=== PATIENT | male | born 1940 | race Caucasian/White ===

== ENCOUNTER 2016-11-28 12:39 | Emergency (ER) | payer OTHER, BC ==
[~2016-11-28] VITALS: Ht 175.3 cm; Wt 97.5 kg
--- NOTE | ~2016-11-28 | EKG ---
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1940 Requested By: Adrián Mckay Order Number: [id number] MD: Juvencio Calhoun Measurements Intervals [place] Rate: 68 P: 34 NM: 218 QRS: -31 QRSD: 94 T: 49 QT: 412 QTc: 439 Interpretive Statements Sinus rhythm Borderline prolonged NM interval Left axis deviation Poor R-wave progression No previous ECG available for comparison Electronically Signed On 11-29-2016 14:19:36 MOUNTER SAXOPHONES by Juvencio Calhoun [email or web address] <ELECTRONICALLY SIGNED> By: Juvencio Calhoun MD, [facility] 11/29/16 1419 1320 1320 Juvencio Calhoun MD, FACC /EPI
[2016-11-28] MEDS ORDERED: OMEPRAZOLE20 M2 PO (13:05)
[2016-11-28] MEDS ORDERED: TUMS PO (13:06)
[2016-11-28] MEDS ORDERED: TRAVATAN Z2.5 ML OPHTHALMIC (13:09)
[2016-11-28] MEDS ORDERED: COSOPT EYE DROPS5 ML OPHTHALMIC (13:10)
[2016-11-28] MEDS ORDERED: COLESTIPOL HCL1 G1 PO (13:11)
[2016-11-28] MEDS ORDERED: ASPIR 8181 MG PER TUBE (13:12)
[2016-11-28] MEDS ORDERED: LIPITOR10 MG PO (13:13)
[2016-11-28] MEDS ORDERED: FINASTERIDE1 MG PO (13:13)
[2016-11-28 13:54] LABS: ABSOLUTE NEUTROPHILS 6.3 thou/uL (1.4-8.2); BASOPHILS 0.9 % (0.0-2.0); EOSINOPHILS 2.2 % (0.0-3.0); HEMATOCRIT 40.4 % (42.0-52.0); LYMPHOCYTES 16.7 % (24.0-44.0); MCH 31.6 pg (26.0-34.0); MCHC 34.7 % (28.0-37.0); MCV 91.2 fL (80.0-100.0); MONOCYTES 7.4 % (1.0-8.0); PLATELET COUNT 197 thou/uL (150-400); POLYS 72.8 % (36.0-66.0); RBC 4.43 mil/uL (4.50-6.00); RDW 14.5 % (10.5-14.5); WBC 8.7 thou/uL (4.0-11.0)
[2016-11-28 13:59] LABS: CREATININE 1.2 mg/dL (0.6-1.3); POTASSIUM 3.7 mmol/L (3.5-5.1)
[2016-11-28 14:04] LABS: ALBUMIN 3.6 g/dL (3.4-5.0); TOTAL BILIRUBIN 0.9 mg/dL (<0.1-1.0); TOTAL PROTEIN 6.9 g/dL (6.4-8.2)
[2016-11-28 14:06] LABS: MAGNESIUM 2.2 mg/dL (1.8-2.4); TROPONIN-I < 0.04 ng/mL (<0.04-0.07)
[2016-11-28 14:13] LABS: MANUAL DIFF NO
[2016-11-28 15:27] LABS: URINE BILIRUBIN NEGATIVE (Negative); URINE BLOOD NEGATIVE (Negative); URINE COLOR YELLOW; URINE GLUCOSE-RANDOM* NEGATIVE (Negative); URINE KETONES NEGATIVE (Negative); URINE LEUKOCYTES-REFLEX NEGATIVE (Negative); URINE PROTEIN (DIPSTICK) NEGATIVE (Negative); URINE SPECIFIC GRAVITY >= 1.030 (1.003-1.035); URINE UROBILINOGEN 0.2 E.U./dl (0.2-1.0)
[2016-11-28 16:09] VITALS: BP 104/68
== END 2016-11-28 16:12 | disposition home or self-care (01) ==
LOC: ER 12:39
PROVIDERS: Emergency Medicine
DX: R53.1 Weakness (principal); E78.5 Hyperlipidemia, unspecified; E03.9 Hypothyroidism, unspecified; K21.9 Gastro-esophageal reflux disease without esophagitis; Z88.0 Allergy status to penicillin; F10.99 Alcohol use, unspecified with unspecified alcohol-induced disorder

== ENCOUNTER 2018-06-15 20:26 | Emergency (ER) | payer OTHER, BC ==
[~2018-06-15] VITALS: Ht 175.3 cm; Wt 93.0 kg
--- NOTE | ~2018-06-15 | EKG ---
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 : 1940 Requested By: Nikolai Batres Order Number: [id number] MD: Juvencio Calhoun Measurements Intervals [place] Rate: 70 P: 41 MS: 227 QRS: -22 QRSD: 101 T: 56 QT: 418 QTc: 452 Interpretive Statements Sinus rhythm Prolonged MS interval Borderline left axis deviation Compared to ECG 11/28/2016 13:20:53 No significant change was found Electronically Signed On 06-16-2018 8:17:01 CDT by Juvencio Calhoun [email or web address] <ELECTRONICALLY SIGNED> By: Juvencio Calhoun MD, [facility] 06/16/18 08 23 23 Juvencio Calhoun MD, [facility] /EPI
[~2018-06-15 20:26] MED LIST: ASPIR 8181 MG PER TUBE; COLESTIPOL HCL1 G1 PO; COSOPT EYE DROPS5 ML OPHTHALMIC; FINASTERIDE1 MG PO; LIPITOR10 MG PO; OMEPRAZOLE20 M2 PO; TRAVATAN Z2.5 ML OPHTHALMIC; TUMS PO
[2018-06-15] MEDS ORDERED: CENTRUM SILVER1 EAC2 PO (20:37)
[2018-06-15] MEDS ORDERED: SYNTHROID100 MC1 PO (20:37)
[2018-06-15] MEDS ORDERED: CALCIUM 500 +1 EAC5 PO (20:37)
[2018-06-15 22:01] LABS: ABSOLUTE NEUTROPHILS 4.6 thou/uL (1.4-8.2); BASOPHILS 1.4 % (0.0-2.0); HEMATOCRIT 33.6 % (42.0-52.0); HEMOGLOBIN 11.4 gm/dL (14.0-18.0); LYMPHOCYTES 20.5 % (24.0-44.0); MCH 32.4 pg (26.0-34.0); MCV 95.4 fL (80.0-100.0); MONOCYTES 10.2 % (1.0-8.0); PLATELET COUNT 222 thou/uL (150-400); POLYS 62.9 % (36.0-66.0); RBC 3.53 mil/uL (4.50-6.00); RDW 15.2 % (10.5-14.5); WBC 7.4 thou/uL (4.0-11.0)
[2018-06-15 22:08] LABS: ANION GAP 6 mmol/L (7-16); BUN 14 mg/dL (7-18); CALCIUM 8.5 mg/dL (8.5-10.1); CHLORIDE 108 mmol/L (98-107); CO2 27 mmol/L (21-32); CREATININE 1.1 mg/dL (0.7-1.3); GLUCOSE 93 mg/dL (74-106); POTASSIUM 3.9 mmol/L (3.5-5.1); SODIUM 141 mmol/L (136-145)
[2018-06-15 22:16] LABS: TROPONIN-I <0.06 ng/mL (<0.06)
[2018-06-15 22:56] VITALS: BP 150/88
== END 2018-06-15 22:56 | disposition home or self-care (01) ==
LOC: ER 20:26
PROVIDERS: Physician Assistant
DX: R60.0 Localized edema (principal); E78.00 Pure hypercholesterolemia, unspecified; E03.9 Hypothyroidism, unspecified; K21.9 Gastro-esophageal reflux disease without esophagitis; Z88.0 Allergy status to penicillin

== ENCOUNTER 2019-07-20 15:58 | Inpatient (IN) | payer OTHER, BC ==
[~2019-07-20] VITALS: Ht 175.3 cm; Wt 93.0 kg
[~2019-07-20 15:58] MED LIST changes: +CALCIUM 500 +1 EAC5 PO; +CENTRUM SILVER1 EAC2 PO; +SYNTHROID100 MC1 PO
[2019-07-20 15:59] VITALS: BP 98/79
--- NOTE | 2019-07-20 16:23 | EKG ---
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1940 Requested By: Adrián Mckay Order Number: [id number] MD: Juvencio Calhoun Measurements Intervals [place] Rate: 135 P: [place]: QRS: -17 QRSD: 87 T: 65 QT: 319 QTc: 479 Interpretive Statements Atrial fibrillation Borderline left axis deviation ST depression, probably rate related Borderline prolonged QT interval Compared to ECG 06/15/2018 21:24:57 Atrial fibrillation has replaced sinus rhythm Electronically Signed On 07-20-2019 16:23:24 CDT by Juvencio Calhoun [email or web address] <ELECTRONICALLY SIGNED> By: Juvencio Calhoun MD, [facility] 07/20/19 1623 D: [id number] Juvencio Calhoun MD, FACC /EPI
[2019-07-20 17:20] LABS: ABSOLUTE NEUTROPHILS 5.5 thou/uL (1.4-8.2); BASOPHILS 1.2 % (0.0-2.0); EOSINOPHILS 3.2 % (0.0-3.0); HEMATOCRIT 33.4 % (42.0-52.0); HEMOGLOBIN 11.2 gm/dL (14.0-18.0); LYMPHOCYTES 14.4 % (24.0-44.0); MCH 29.4 pg (26.0-34.0); MCHC 33.6 g/dL (28.0-37.0); MCV 87.5 fL (80.0-100.0); MONOCYTES 8.9 % (1.0-8.0); PLATELET COUNT 197 thou/uL (150-400); POLYS 72.3 % (36.0-66.0); RBC 3.81 mil/uL (4.50-6.00); RDW 18.6 % (10.5-14.5); WBC 7.6 thou/uL (4.0-11.0)
[2019-07-20 17:29] LABS: ANION GAP 8 mmol/L (7-16); BUN 20 mg/dL (7-18); CALCIUM 9.1 mg/dL (8.5-10.1); CHLORIDE 106 mmol/L (98-107); CO2 26 mmol/L (21-32); CREATININE 1.1 mg/dL (0.7-1.3); GLUCOSE 108 mg/dL (74-106); POTASSIUM 3.6 mmol/L (3.5-5.1); SODIUM 140 mmol/L (136-145)
[2019-07-20 17:39] LABS: ALBUMIN 3.2 g/dL (3.4-5.0); MAGNESIUM 1.9 mg/dL (1.8-2.4); SGOT 19 U/L (15-37); SGPT 22 U/L (30-65); TOTAL BILIRUBIN 0.6 mg/dL (<0.1-1.0); TOTAL PROTEIN 6.2 g/dL (6.4-8.2); TROPONIN-I <0.06 ng/mL (<0.06)
[2019-07-20 18:00] LABS: URINE BILIRUBIN NEGATIVE (Negative); URINE BLOOD NEGATIVE (Negative); URINE CLARITY CLEAR; URINE COLOR YELLOW; URINE GLUCOSE-RANDOM* NEGATIVE (Negative); URINE KETONES NEGATIVE (Negative); URINE LEUKOCYTES-REFLEX NEGATIVE (Negative); URINE NITRITE-REFLEX NEGATIVE (Negative); URINE PROTEIN (DIPSTICK) NEGATIVE (Negative); URINE UROBILINOGEN 0.2 E.U./dl (0.2-1.0)
[2019-07-20 18:01] VITALS: BP 114/74
[2019-07-20 19:31] VITALS: BP 107/71
[2019-07-20 20:00] VITALS: BP 126/76
[2019-07-20] MEDS ORDERED: IRON325 PO (20:56)
[2019-07-20] MEDS ORDERED: PROCTOZONE-HC30 GM RECTAL (20:58)
[2019-07-21 00:15] VITALS: BP 108/53
[2019-07-21 04:25] VITALS: BP 117/65
--- NOTE | 2019-07-21 05:29 | NUR ---
PT ARRIVED UNIT AT ABOUT 1940, PT A/OX4, VITALS SIGNS STABLE, ASSESSMENT CHARTED. ADMISSION AND MED REC COMPLETED. NO COMPLAINTS OF PAIN. PT RESTE WELL THROUGH THE NIGHT. SINUS BRADYCARDIA ON THE MONITOR THROUGH OUT THE NIGHT, HR IN THE 50'S. OFF CARDIZEM DRIP. PROGRESSING TOWARD PLAN OF CARE. WILL CONTINUE TO MONITOR.
[2019-07-21 05:31] LABS: ANION GAP 9 mmol/L (7-16); BUN 19 mg/dL (7-18); CALCIUM 8.6 mg/dL (8.5-10.1); CHLORIDE 107 mmol/L (98-107); CHOLESTEROL 160 mg/dL (<200); CO2 26 mmol/L (21-32); GLUCOSE 99 mg/dL (74-106); HDL CHOLESTEROL 30 mg/dL (>40); LDL CHOLESTEROL 81 mg/dL (<100); POTASSIUM 3.3 mmol/L (3.5-5.1); SODIUM 142 mmol/L (136-145); TC:HDL 5.3 Ratio (Not establshd); TRIGLYCERIDE 248 mg/dL (<150); VLDL 50 mg/dL (<40)
[2019-07-21 05:56] LABS: ABSOLUTE NEUTROPHILS 5.4 thou/uL (1.4-8.2); BASOPHILS 0.7 % (0.0-2.0); HEMATOCRIT 32.7 % (42.0-52.0); LYMPHOCYTES 17.8 % (24.0-44.0); MCH 29.7 pg (26.0-34.0); MCHC 33.6 g/dL (28.0-37.0); MCV 88.5 fL (80.0-100.0); MONOCYTES 9.8 % (1.0-8.0); PLATELET COUNT 202 thou/uL (150-400); POLYS 68.7 % (36.0-66.0); RDW 19.3 % (10.5-14.5); WBC 7.8 thou/uL (4.0-11.0)
[2019-07-21 05:59] LABS: SERUM ASSESSMENT Clear
[2019-07-21 08:07] VITALS: BP 127/60
--- NOTE | 2019-07-21 08:34 | NUR ---
ASSUMED CARE OF PT FOR DAY SHIFT. A&0X4, AMB INDEPENDENTLY, SISTER IN LAW AT BEDSIDE, STATES SHE NOTED WHAT APPEARS LIKE SLEEP APNEA. WILL SEND COMM TO HOSPITALIST ON BOARD FOR TODAY, AGREED TO SOME TYLENOL FOR CHRONIC BACK PAIN AND ONE OF HIS TOES HURTS, WONDERS ALOUD IF HE KICKED THE END OF THE BED DURING SLEEP. ENCOURAGED BOTH TO USE CALL LIGHT FOR ANY NEEDS
--- NOTE | 2019-07-21 10:29 | 2DMMODE ---
[facility] [address] [place] [address] 2 D/M-MODE ECHOCARDIOGRAM Name: SABRA PEREIRA Room #: 214-P ADM IN M.R.#: [id number] Admission: 07/20/19 Attend Phys: Rachel Patrick Discharge: Date of : 44 Date of Service: 07/21/19 1029 Report #: [id number] THIS REPORT FOR: //name// APPROVED REPORT Study performed: 07/21/2019 09:49:32 EXAM: Comprehensive 2D, Doppler, and color-flow Echocardiogram Patient Location: Bedside Room #: 214 Status: routine BSA: 2.09 HR: 64 bpm BP: 117/65 mmHg Rhythm: NSR Other Information Study Quality: Adequate Indications New onset of Afib with RVR. 2D Dimensions RVDd: 31.30 mm IVSd: 12.48 (7-11mm) LVOT Diam: 20.76 (18-24mm) LVDd: 44.57 mm PWd: 11.49 (7-11mm) Ascending Ao: 35.09 (22-36mm) LVDs: 31.08 (25-40mm) Aortic Root: 33.26 mm Volumes Left Atrial Volume (Systole) Single Plane 4CH: 33.44 mL Single Plane 2CH: 39.47 mL LA ESV Index: 18.00 mL/m2 Aortic Valve AoV Peak Ady.: 1.57 m/s AO Peak Gr.: 9.84 mmHg LVOT Max P.64 mmHg LVOT Max V: 1.29 m/s CAITIE Vmax: 2.78 cm2 Mitral Valve E/A Ratio: 0.8 MV Decel. Time: 229.62 ms MV E Max Ady.: 0.63 m/s [facility] [address] [place] [address] 2 D/M-MODE ECHOCARDIOGRAM Name: SABRA PEREIRA Room #: 214-[facility] IN ..#: [id number] Admission: 07/20/19 Attend Phys: Rachel Patrick Discharge: Date of : 44 Date of Service: 07/21/19 1029 Report #: [id number] MV A Ady.: 0.82 m/s MV PHT: 66.59 ms IVRT: 133.79 ms Pulmonary Valve PV Peak Ady.: 0.87 m/s PV Peak Gr.: 3.03 mmHg Pulmonary Vein P Vein S: 0.55 m/s P Vein D: 0.41 m/s P Vein S/D Ratio: 1.34 Tricuspid Valve TR Peak Ady.: 1.83 m/s RAP Estimate: 5.00 mmHg TR Peak Gr.: 13.36 mmHg PA Pressure: 18.00 mmHg Left Ventricle The left ventricle is normal size. There is normal LV segmental wall motion. Mild basal septal hypertrophy is present. Left ventricular systolic function is normal. LVEF is 60-65%. Mild diastolic dysfunction is present (impaired relaxation pattern). Right Ventricle The right ventricle is normal size. The right ventricular systolic function is normal. Atria The left atrium size is normal. The right atrium size is normal. Aortic Valve The aortic valve is normal in structure. No aortic regurgitation is present. There is no aortic valvular stenosis. Mitral Valve The mitral valve is normal in structure. There is no mitral valve regurgitation noted. No evidence of mitral valve stenosis. Tricuspid Valve The tricuspid valve is normal in structure. Trace tricuspid regurgitation. Estimated PAP is 20mmHg. Pulmonic Valve Pulmonic valve is not well visualized. Trace pulmonic regurgitation. [facility] [address] [place] [address] 2 D/M-MODE ECHOCARDIOGRAM Name: PEREIRASABRARICK Room #: 214-P [facility] IN M.R.#: [id number] Admission: 07/20/19 Attend Phys: Rachel Patrick Discharge: Date of : 44 Date of Service: 07/21/19 1029 Report #: [id number] Great Vessels The aortic root is normal in size. The ascending aorta is normal in size. IVC is normal in size and collapses >50% with inspiration. Pericardium There is no pericardial effusion. <Conclusion> The left ventricle is normal size. Left ventricular systolic function is normal. Mild diastolic dysfunction is present (impaired relaxation pattern). The right ventricle is normal size. The left atrium size is normal. The aortic valve is normal in structure. The mitral valve is normal in structure. Trace tricuspid regurgitation. Estimated PAP is 20mmHg. <ELECTRONICALLY SIGNED> By: Aston Montez MD 07/21/19 1029 1029 1029 Aston Montez MD /INF
[2019-07-21 12:10] VITALS: BP 106/61
[2019-07-21 13:50] VITALS: BP 96/66
[2019-07-21 21:48] VITALS: BP 124/73
--- NOTE | 2019-07-22 03:32 | NUR ---
ASSUMED PT CARE AT 1900. VITAL SIGNS STABLE, ASSESSMENT CHARTED. NO COMPLAINTS OF PAIN. NSR ON THE MONITOR THROUGHOUT SHIFT. PT RESTED WELL THROUGH THE NIGHT. PROGRESSING TOWARDS PLAN OF CARE. POSSIBLE DISCHARGE IN AM. WILLL CONTINUE TO CLOSELY MONITOR.
[2019-07-22 08:01] VITALS: BP 143/74
[2019-07-22] MEDS ORDERED: ELIQUIS5 MG PO (08:40)
[2019-07-22] MEDS ORDERED: METOPROLOL SUCC25 M1 PO (08:40)
[2019-07-22 11:00] VITALS: BP 143/74
--- NOTE | 2019-07-22 11:40 | NUR ---
ASSUMED CARE OF PT AT BEGINNING OF DAY SHIFT, HE IS A&0X4, DEFERS A LOT OF QUESTIONS TO SISTER IN LAW AND AT DIRECT GAZE TO HIM, HE WILL ANSWER. SIS IN LAW, LUISA, SHOWS TERRIFIC SUPPORT. AMB STEADY. USES CALL LIGHT FREQ FOR NEEDS. CALLED IN RX FOR THEM PRIOR TO DISCHARGE. LEAVING WITH 'BIOTEL' HEART MONITOR ON, AND HAS REC SAMPLES FROM CARDIOLOGY, IV AND TELE REMOVED AND PT WILL BE D/C'D VIA W/C AND HOSPITAL UNIT STAFF ACCOMPANIED BY LUISA
[2019-07-22 12:11] VITALS: BP 143/74
--- NOTE | 2019-07-25 07:25 | EKG ---
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1940 Requested By: Adrián Mckay Order Number: [id number] MD: Juvencio Calhoun Measurements Intervals [place] Rate: 66 P: [place]: QRS: -29 QRSD: 96 T: 34 QT: 429 QTc: 450 Interpretive Statements Atrial fibrillation Borderline left axis deviation Compared to ECG 07/20/2019 16:03:10 Heart rate has slowed Electronically Signed On 07-25-2019 7:25:33 CDT by Juvencio Calhoun [email or web address] <ELECTRONICALLY SIGNED> By: Juvencio Calhoun MD, [facility] 07/25/19 07 01 01 Juvencio Calhoun MD, [facility] /EPI
--- NOTE | 2019-07-25 10:23 | NUR ---
PT DISCHARGED TO HOME ON SUNDAY 07/22 WITH HH FAXED REFERRAL [facility] SPOKE WITH CEM IN INTAKE AND SHE RECEIVED REFERRAL AND CAN ACCEPT PT. SHE WILL NOTIFY PT TIME OF VISITS.
--- NOTE | 2019-07-25 12:59 | NUR ---
PT DISCHARGED WEDNESDAY TO HOME WITH HH DUE TO HOLIDAY WEEKEND REFERRAL WAS FAXED TO [facility] HH SPOKE WITH CEM IN INTAKE SHE RECEIVED REFERRAL AND CAN ACCEPT PT. FAXED DC ORDERS/SUMMARY AND CONFIRMED DC ORDER RECEIVED AND [facility] WILL NOTIFY PT TIME OF VISITS.
== END 2019-07-22 16:07 | disposition home health service (06) | DRG 308 ==
LOC: ER 15:58 → 2N 17:51 → EROBS 17:51 → 2N 19:32
PROVIDERS: Emergency Medicine; Nurse Practitioner; ADMIT Hospitalist
DX: I48.91 Unspecified atrial fibrillation (principal); E43 Unspecified severe protein-calorie malnutrition; E78.00 Pure hypercholesterolemia, unspecified; E03.9 Hypothyroidism, unspecified; Z60.2 Problems related to living alone; D64.9 Anemia, unspecified; K21.9 Gastro-esophageal reflux disease without esophagitis; Z88.0 Allergy status to penicillin; Z79.82 Long term (current) use of aspirin; Z79.899 Other long term (current) drug therapy; Z88.8 Allergy status to other drugs, medicaments and biological substances; Z87.891 Personal history of nicotine dependence
CPT/HCPCS: 10081; 10194

== ENCOUNTER → 2019-08-16 | Outpatient (CLI) | payer OTHER, BC ==
[~2019-08-16] MED LIST changes: +ELIQUIS5 MG PO; +IRON325 PO; +METOPROLOL SUCC25 M1 PO; +PROCTOZONE-HC30 GM RECTAL
== END ==
LOC: NUC 07:34
DX: I48.91 Unspecified atrial fibrillation (principal); E78.2 Mixed hyperlipidemia; Z79.899 Other long term (current) drug therapy; Z88.8 Allergy status to other drugs, medicaments and biological substances